=== PATIENT | male | born 2000 | race Caucasian/White ===

== ENCOUNTER 2023-12-23 12:30 | Outpatient (CLI) | payer OTHER, SELFPAY ==
--- NOTE | ~2023-12-23 | US_ITS ---
TESTICULAR ULTRASOUND (Doppler ultrasound interrogation techniques used as needed for this exam.) Ordering provider: Martin ElderMD History: . MASS . Comparison: None. FINDINGS: TESTICLES: Normal in size. The right measures 4.4x 2.4x 2.6 cm and the left measures 4.5x 2.6x 3.5 cm . Normal echogenicity bilaterally without mass lesion. Normal Doppler flow bilaterally. EPIDIDYMIDES: Normal in size. The right measures 1.4 x 0.9 cm and the left 1.2 x 1 cm. The right bod y measures 0.3 cm and the left measures 0.4 cm. Normal echogenicity bilaterally. Both demonstrate nor mal Doppler flow. Left epididymal cyst is seen measuring 1.9 5.6 x 0.9 cm. HYDROCELE: None. VARICOCELE: Small right OTHER ABNORMALITY: None seen. IMPRESSION: Left epididymal cyst. Mild right varicocele. Otherwise, normal testicular ultrasound. Reviewed, dictated and finalized at location A. IMPRESSION: Left epididymal cyst. Mild right varicocele. Otherwise, normal testicular ultra sound.
--- NOTE | ~2023-12-23 | XR_ITS ---
EXAMINATION: XR chest 2V 12/23/2023 12:41 INDICATION: Cough PROCEDURE: 2 view chest COMPARISON: No prior studies for comparison. FINDINGS: The lungs are clear. The cardiomediastinal silhouette is within normal limits. There are no pleural effusions. There is no pneumothorax suspected. IMPRESSION: 1: NO ACUTE CARDIOPULMONARY DISEASE. Reviewed, dictated and finalized at location B.
== END 2023-12-23 12:31 | disposition home or self-care (01) ==
LOC: MICIMG 12:31
PROVIDERS: PCP Internal Medicine; Visit Provider Internal Medicine
DX: N50.89 Other specified disorders of the male genital organs (principal); N50.3 Cyst of epididymis; I86.1 Scrotal varices
CPT/HCPCS: 71046; 76870; 93976